=== PATIENT | female | born 1950 | race Caucasian/White ===

== ENCOUNTER 2020-06-04 00:14 | Emergency (ER) | payer OTHER ==
[~2020-06-04] VITALS: Ht 157.5 cm; Wt 68.0 kg
[~2020-06-04 00:14] MED LIST: ALBUTEROL0.63 MG/3 NEB; BROVANA15 MCG/2 M NEB; BUDESONIDE0.5 MG/2 M NEB; BUSPAR 10MG10 MG PO; COZAAR 50MG TAB50 MG PO; COZAAR25 MG PO; DIGOX250 MCG PO; ECOTRIN81 MG PO; ELIQUIS 5 MG TAB5 MG PO; FAMOTIDINE20 MG NG; FLONASE 0.05% N16 GM; FUROSEMIDE40 MG PO; HABITROL 21 MG P1 EA TOP; LASIX20 MG PO; LEVAQUIN500 MG PO; LIPITOR TAB 2020 MG PO; LOPRESSOR 25 MG25 MG PO; MEDROL4 MG PO; MONTELUKAST SOD10 MG PO; NICOTINE PATCH1 EAC2 TOP; NORVASC10 MG PO; OMEPRAZOLE20 MG PO; PAXIL10 MG PO; PLAVIX 75 MG TA75 MG PO; POTASSIUM CHLO20 ME2 PO; PREDNISONE 20 M20 MG PO; PREDNISONE10 MG PO; SPIRIVA HANDIH18 MCG INH; SYMBICORT 160-1 INHA INH; THEO-DUR 300 M300 MG PO; VENTOLIN HFA 66.7 GM INH; ZANAFLEX4 MG PO
[2020-06-04 01:44] LABS: HEMOGLOBIN 14.3 gm/dl (12.3-15.3); RED BLOOD COUNT 4.93 M/UL (4.00-5.10); WHITE BLOOD COUNT 9.2 K/UL (4.5-11.0)
[2020-06-04 02:23] LABS: BUN/CREATININE RATIO 24 (0-10)
[2020-06-04 05:26] LABS: THEOPHYLLINE < 2.0 ug/mL (10.0-20.0)
== END 2020-06-04 16:10 | disposition other institution (70) ==
LOC: ER1 00:14 → CDU 04:18 → ER1 04:18
PROVIDERS: Internal Medicine
DX: J96.22 Acute and chronic respiratory failure with hypercapnia (principal); J44.1 Chronic obstructive pulmonary disease with (acute) exacerbation; G93.40 Encephalopathy, unspecified; I10 Essential (primary) hypertension; F17.200 Nicotine dependence, unspecified, uncomplicated; Z20.822 Contact with and (suspected) exposure to COVID-19; I48.0 Paroxysmal atrial fibrillation; E87.2 Acidosis; I25.10 Atherosclerotic heart disease of native coronary artery without angina pectoris; Z95.5 Presence of coronary angioplasty implant and graft; I11.0 Hypertensive heart disease with heart failure; I50.20 Unspecified systolic (congestive) heart failure; J30.9 Allergic rhinitis, unspecified; F41.9 Anxiety disorder, unspecified; G25.81 Restless legs syndrome; Z91.19 Patient's noncompliance with other medical treatment and regimen; D64.9 Anemia, unspecified; E78.5 Hyperlipidemia, unspecified; K21.9 Gastro-esophageal reflux disease without esophagitis
CPT/HCPCS: 0241U; 31500; 36600; 71045; 80053; 80162; 80198; 81001; 82550; 82553; 82800; 82803; 83605; 84484; 85025; 87040; 93005; 94002; 94640; 94660; 94664; 94760; 96365; 96366; 96368; 96375; 99285; G0480; J0330; J0456; J0696; J2185; J2250; J2920; J3370; J7030; J7070

== ENCOUNTER 2020-08-05 19:26 | Inpatient (IN) | payer OTHER ==
[~2020-08-05] VITALS: Ht 157.5 cm; Wt 72.2 kg
[2020-08-05 21:05] LABS: HEMOGLOBIN 10.7 gm/dl (12.3-15.3); RED BLOOD COUNT 3.78 M/UL (4.00-5.10); WHITE BLOOD COUNT 8.8 K/UL (4.5-11.0)
[2020-08-05 21:13] LABS: BUN/CREATININE RATIO 15 (0-10)
[2020-08-05] MEDS ORDERED: AMIODARONE HCL200 MG PO (21:50)
[2020-08-05] MEDS ORDERED: FUROSEMIDE20 MG PO (21:51)
[2020-08-05] MEDS ORDERED: ATORVASTATIN CA40 MG PO (21:51)
[2020-08-06] MEDS ORDERED: BROVANA15 MCG/2 M INH (10:18)
[2020-08-06] MEDS ORDERED: ASPIRIN81 MG PO (10:19)
[2020-08-06] MEDS ORDERED: IPRAT-ALBUT 0.5-3 ML INH (10:19)
[2020-08-06] MEDS ORDERED: ELIQUIS5 MG PO (10:20)
[2020-08-06] MEDS ORDERED: LOPRESSOR 25 MG25 MG PO (10:20)
[2020-08-06] MEDS ORDERED: BUSPIRONE HCL10 MG PO (10:21)
[2020-08-06] MEDS ORDERED: ATORVASTATIN CA40 MG PO (10:22)
[2020-08-07 04:19] LABS: HEMOGLOBIN 9.8 gm/dl (12.3-15.3); RED BLOOD COUNT 3.5 M/UL (4.00-5.10)
[2020-08-07 04:42] LABS: WHITE BLOOD COUNT 12.7 K/UL (4.5-11.0)
[2020-08-07 17:53] LABS: BORDETELLA PARAPERTUSSIS Not Detected (Not Detectd); BORDETELLA PERTUSSIS Not Detected (Not Detectd); CHLAMYDIA PNEUMONIAE Not Detected (Not Detectd); CORONAVIRUS HKU1 Not Detected (Not Detectd); CORONAVIRUS NL63 Not Detected (Not Detectd); CORONAVIRUS OC43 Not Detected (Not Detectd); CORONOAVIRUS 229E Not Detected (Not Detectd); HUMAN METAPNEUMOVIRUS Not Detected (Not Detectd); HUMAN RHINOVIRUS/ENTEROVIRUS Not Detected (Not Detectd); INFLUENZA A Not Detected (Not Detectd); INFLUENZA B Not Detected (Not Detectd); MYCOPLASMA PNEUMONIAE Not Detected (Not Detectd); PARAINFLUENZA VIRUS 1 Not Detected (Not Detectd); PARAINFLUENZA VIRUS 2 Not Detected (Not Detectd); PARAINFLUENZA VIRUS 3 Not Detected (Not Detectd); PARAINFLUENZA VIRUS 4 Not Detected (Not Detectd); RESPIRATORY SYNCYTIAL VIRUS Not Detected (Not Detectd)
[2020-08-07 19:11] LABS: SARS-CoV-2 NOT DETECTED (Not Detectd)
[2020-08-08 05:47] LABS: BUN/CREATININE RATIO 32 (0-10)
[2020-08-10 03:39] LABS: HEMOGLOBIN 10.5 gm/dl (12.3-15.3); RED BLOOD COUNT 3.77 M/UL (4.00-5.10); WHITE BLOOD COUNT 11.1 K/UL (4.5-11.0)
[2020-08-10 11:14] LABS: ORGANISM ID Not indicated. (.); SPECIMEN SOURCE Urine (.); STREPTOCOCCUS PNEUMONIAE AG Negative (Negative)
== END 2020-08-10 19:30 | disposition home health service (06) | DRG 189 ==
LOC: ER1 19:26 → CDU 21:40 → CCU 21:40 → PROG CARE 08-09 16:01
PROVIDERS: Internal Medicine; Preventive Medicine Occupational Medicine; ADMIT Internal Medicine
DX: J96.21 Acute and chronic respiratory failure with hypoxia (principal); J44.1 Chronic obstructive pulmonary disease with (acute) exacerbation; I50.22 Chronic systolic (congestive) heart failure; I48.20 Chronic atrial fibrillation, unspecified; E44.0 Moderate protein-calorie malnutrition; J96.22 Acute and chronic respiratory failure with hypercapnia; I11.0 Hypertensive heart disease with heart failure; Z20.822 Contact with and (suspected) exposure to COVID-19; I25.10 Atherosclerotic heart disease of native coronary artery without angina pectoris; I11.9 Hypertensive heart disease without heart failure; F41.9 Anxiety disorder, unspecified; F32.9 Major depressive disorder, single episode, unspecified; D53.9 Nutritional anemia, unspecified; E78.5 Hyperlipidemia, unspecified; K21.9 Gastro-esophageal reflux disease without esophagitis; Z87.891 Personal history of nicotine dependence; Z99.81 Dependence on supplemental oxygen; Z91.14 Patient's other noncompliance with medication regimen; I25.2 Old myocardial infarction; Z90.49 Acquired absence of other specified parts of digestive tract; Z98.51 Tubal ligation status; Z82.49 Family history of ischemic heart disease and other diseases of the circulatory system; Z68.28 Body mass index [BMI] 28.0-28.9, adult
CPT/HCPCS: ECHO; 0240U; 36415; 36600; 71045; 80048; 80053; 80198; 81001; 82550; 82553; 82803; 83690; 83874; 83880; 84484; 85025; 85652; 86140; 86738; 87040; 87070; 87081; 87086; 87205; 87278; 87633; 87899; 93005; 93306; 94640; 94660; 94760; 96374; 96375; 99285; C9113; J0456; J0696; J1100; J2920; J7030; J7050

== ENCOUNTER 2020-12-11 14:46 | Inpatient (IN) | payer OTHER ==
[~2020-12-11] VITALS: Ht 162.6 cm; Wt 78.0 kg
[~2020-12-11 14:46] MED LIST changes: +AMIODARONE HCL200 MG PO; +AMOXICILLIN500 MG PO; +ATORVASTATIN CA40 MG PO; +BROVANA15 MCG/2 M INH; +BUSPIRONE HCL10 MG PO; +ELIQUIS5 MG PO; +FUROSEMIDE20 MG PO; +PREDNISONE10 M1 PO
[2020-12-11 15:20] LABS: RED BLOOD COUNT 4.28 M/UL (4.00-5.10); WHITE BLOOD COUNT 16.1 K/UL (4.5-11.0)
[2020-12-11 15:38] LABS: BUN/CREATININE RATIO 28 (0-10)
[2020-12-12 04:50] LABS: RED BLOOD COUNT 3.94 M/UL (4.00-5.10); WHITE BLOOD COUNT 9.1 K/UL (4.5-11.0)
[2020-12-12] MEDS ORDERED: IPRAT-ALBUT 0.5-3 ML INH (10:19)
[2020-12-12] MEDS ORDERED: ASPIRIN EC81 MG PO (10:19)
[2020-12-12] MEDS ORDERED: METOPROLOL SUCC50 MG PO (10:20)
[2020-12-12] MEDS ORDERED: SINGULAIR10 MG PO (12:37)
[2020-12-12] MEDS ORDERED: K-TAB ER10 MEQ PO (12:40)
--- NOTE | 2020-12-12 15:34 | NUR ---
RN SPOKE WITH DR. LOPES ABOUT PATIENT STATUS ORDER. MD STATED THAT HE WAS TOLD THIS WAS THE FIRST TIME PATIENT WAS ON THE BIPAP AND NEEDED TO BE ON PCU. RN NOTIFIED [employer] SCRUBBER OPERATOR WHO INSTRUCTED RN TO HAVE STAFF MEMBER SIT 1:1 UNTIL ROOM WAS AVAILABLE FOR PATIENT ON PCU.
[2020-12-13 04:41] LABS: RED BLOOD COUNT 4.02 M/UL (4.00-5.10); WHITE BLOOD COUNT 9.5 K/UL (4.5-11.0)
[2020-12-13] MEDS ORDERED: MILLIPRED5 MG PO (08:53)
[2020-12-13] MEDS ORDERED: BUDESONIDE0.5 MG/2 M NEB (08:53)
[2020-12-13] MEDS ORDERED: PROTONIX 40 MG40 M1 PO (08:53)
== END 2020-12-13 15:09 | disposition home or self-care (01) | DRG 189 ==
LOC: ER1 14:46 → PROG CARE 21:05 → CDU 21:05 → MED SURG 4 12-12 15:10 → PROG CARE 12-12 16:20
PROVIDERS: Internal Medicine; Student in an Organized Health Care Education/Training Program; ADMIT Internal Medicine
PROC: 5A09457 Assistance with Respiratory Ventilation, 24-96 Consecutive Hours, Continuous Positive Airway Pressure (ICD-10-PCS; principal; 2020-12-11)
DX: J96.21 Acute and chronic respiratory failure with hypoxia (principal); G93.41 Metabolic encephalopathy; E87.2 Acidosis; J44.1 Chronic obstructive pulmonary disease with (acute) exacerbation; N17.9 Acute kidney failure, unspecified; Z20.822 Contact with and (suspected) exposure to COVID-19; F32.9 Major depressive disorder, single episode, unspecified; I10 Essential (primary) hypertension; I25.10 Atherosclerotic heart disease of native coronary artery without angina pectoris; F41.9 Anxiety disorder, unspecified; D64.9 Anemia, unspecified; K21.9 Gastro-esophageal reflux disease without esophagitis; E78.5 Hyperlipidemia, unspecified; J96.22 Acute and chronic respiratory failure with hypercapnia; I48.91 Unspecified atrial fibrillation; Z79.01 Long term (current) use of anticoagulants; Z79.82 Long term (current) use of aspirin; Z99.81 Dependence on supplemental oxygen; Z91.14 Patient's other noncompliance with medication regimen
CPT/HCPCS: 36415; 36600; 71045; 80053; 82550; 82553; 82728; 82803; 83874; 84484; 85025; 86140; 93005; 94640; 94660; 94664; 94760; 96374; 96375; 99285; J0696; J1650; J1956; J2930; J7030; U0002

== ENCOUNTER 2021-02-08 10:31 | Inpatient (IN) | payer OTHER ==
[~2021-02-08] VITALS: Ht 157.5 cm; Wt 72.6 kg
[~2021-02-08 10:31] MED LIST changes: +ASPIRIN EC81 MG PO; -BUSPIRONE HCL10 MG PO; +BUSPIRONE HCL15 MG PO; +IPRAT-ALBUT 0.5-3 ML INH; +K-TAB ER10 MEQ PO; +METOPROLOL SUCC50 MG PO; +MILLIPRED5 MG PO; +PROTONIX 40 MG40 M1 PO; +SINGULAIR10 MG PO
[2021-02-08 11:07] LABS: HEMOGLOBIN 10.7 gm/dl (12.3-15.3); RED BLOOD COUNT 4.18 M/UL (4.00-5.10)
[2021-02-08 11:31] LABS: BUN/CREATININE RATIO 23 (0-10)
[2021-02-08] MEDS ORDERED: BUDESONIDE0.5 MG/2 M INH (14:18)
[2021-02-08] MEDS ORDERED: PROTONIX40 MG PO (14:24)
[2021-02-09 05:09] LABS: HIV SCREEN 4TH GENERATION WRFX Non Reactive (Non Reactive)
[2021-02-09 07:43] LABS: HEMOGLOBIN 9.8 gm/dl (12.3-15.3); RED BLOOD COUNT 4.07 M/UL (4.00-5.10); WHITE BLOOD COUNT 7.7 K/UL (4.5-11.0)
[2021-02-09 07:55] LABS: BUN/CREATININE RATIO 25 (0-10)
[2021-02-09 08:14] LABS: HBSAG SCREEN Negative (Negative); HEP A AB, IGM Negative (Negative); HEP B CORE AB, IGM Negative (Negative); HEP C VIRUS AB <0.1 (0.0-0.9)
[2021-02-10 06:23] LABS: HEMOGLOBIN 9.6 gm/dl (12.3-15.3); RED BLOOD COUNT 3.81 M/UL (4.00-5.10)
[2021-02-10 06:33] LABS: WHITE BLOOD COUNT 11.6 K/UL (4.5-11.0)
[2021-02-10] MEDS ORDERED: MEDROL DOSEPAK 24 MG PO (12:48)
[2021-02-10] MEDS ORDERED: DOXYCYCLINE HY100 MG PO (12:48)
== END 2021-02-10 16:18 | disposition home or self-care (01) | DRG 193 ==
LOC: ER1 10:31 → CDU 12:34 → MED SURG 4 12:34
PROVIDERS: Emergency Medicine; Physician Assistant Medical; ADMIT Internal Medicine
PROC: 5A09457 Assistance with Respiratory Ventilation, 24-96 Consecutive Hours, Continuous Positive Airway Pressure (ICD-10-PCS; principal; 2021-02-08)
DX: J18.9 Pneumonia, unspecified organism (principal); J96.21 Acute and chronic respiratory failure with hypoxia; Z20.822 Contact with and (suspected) exposure to COVID-19; J96.22 Acute and chronic respiratory failure with hypercapnia; J44.0 Chronic obstructive pulmonary disease with (acute) lower respiratory infection; I50.42 Chronic combined systolic (congestive) and diastolic (congestive) heart failure; J44.1 Chronic obstructive pulmonary disease with (acute) exacerbation; K21.9 Gastro-esophageal reflux disease without esophagitis; I11.0 Hypertensive heart disease with heart failure; F41.9 Anxiety disorder, unspecified; F32.A Depression, unspecified; D64.9 Anemia, unspecified; E78.5 Hyperlipidemia, unspecified; I48.0 Paroxysmal atrial fibrillation; I25.10 Atherosclerotic heart disease of native coronary artery without angina pectoris; Z95.5 Presence of coronary angioplasty implant and graft; Z79.01 Long term (current) use of anticoagulants; Z79.82 Long term (current) use of aspirin; Z98.51 Tubal ligation status; Z88.5 Allergy status to narcotic agent; Z90.710 Acquired absence of both cervix and uterus; Z90.49 Acquired absence of other specified parts of digestive tract
CPT/HCPCS: 36415; 36600; 71045; 80048; 80053; 80074; 82803; 83735; 84484; 85025; 85027; 86140; 87389; 93005; 94640; 94660; 94664; 94760; 96374; 96375; 97162; 99285; J0696; J2930; U0002

== ENCOUNTER 2021-02-26 06:46 | Inpatient (IN) | payer OTHER ==
[~2021-02-26] VITALS: Ht 157.5 cm; Wt 78.1 kg
[~2021-02-26 06:46] MED LIST changes: +BUDESONIDE0.5 MG/2 M INH; +DOXYCYCLINE HY100 MG PO; -IPRAT-ALBUT 0.5-3 ML INH; +MEDROL DOSEPAK 24 MG PO; +PROTONIX40 MG PO
[2021-02-26 07:19] LABS: RED BLOOD COUNT 3.92 M/UL (4.00-5.10); WHITE BLOOD COUNT 7.9 K/UL (4.5-11.0)
[2021-02-26 07:36] LABS: BUN/CREATININE RATIO 13 (0-10)
[2021-02-27 10:45] LABS: HEMOGLOBIN 11.1 gm/dl (12.3-15.3)
[2021-02-27 10:47] LABS: RED BLOOD COUNT 4.35 M/UL (4.00-5.10); WHITE BLOOD COUNT 5.3 K/UL (4.5-11.0)
[2021-02-27 11:18] LABS: BUN/CREATININE RATIO 16 (0-10)
[2021-02-28 06:45] LABS: HEMOGLOBIN 9.9 gm/dl (12.3-15.3); RED BLOOD COUNT 3.94 M/UL (4.00-5.10)
[2021-02-28 07:26] LABS: BUN/CREATININE RATIO 13 (0-10)
--- NOTE | 2021-02-28 09:59 | NUR ---
PATIENT HASN'T A HORVATH CATHETER. SHE HAD AN EXTERNAL CATHETER FOR THE FIRST NIGHT AND DAY SHE WAS HERE. CHARTING WOULD ALOW THE CATHETER TO BE DELETED AND CHARTED PROPERLY. PATIENT IS USING BEDSIDE COMMODE AND VOIDING ON HER OWN WITH ASSISTANCE. WILL CONTINUE TO MONITOR.
[2021-03-03] MEDS ORDERED: ACETAZOLAMIDE250 MG PO (08:58)
[2021-03-03] MEDS ORDERED: ASPIRIN EC81 MG PO (08:58)
[2021-03-09] MEDS ORDERED: IPRAT-ALBUT 0.5-3 ML NEB (10:19)
== END 2021-03-03 15:43 | disposition home health service (06) | DRG 291 ==
LOC: ER1 06:46 → CDU 08:52 → M/S 08:52 → 3 EAST 03-03 14:36
PROVIDERS: Emergency Medicine; Internal Medicine Infectious Disease; Physician Assistant; ADMIT Internal Medicine
DX: I11.0 Hypertensive heart disease with heart failure (principal); I50.33 Acute on chronic diastolic (congestive) heart failure; J96.21 Acute and chronic respiratory failure with hypoxia; J96.22 Acute and chronic respiratory failure with hypercapnia; I48.0 Paroxysmal atrial fibrillation; I25.10 Atherosclerotic heart disease of native coronary artery without angina pectoris; Z20.822 Contact with and (suspected) exposure to COVID-19; Z66 Do not resuscitate; J44.9 Chronic obstructive pulmonary disease, unspecified; F41.9 Anxiety disorder, unspecified; E78.5 Hyperlipidemia, unspecified; D64.9 Anemia, unspecified; E66.01 Morbid (severe) obesity due to excess calories; F17.210 Nicotine dependence, cigarettes, uncomplicated; K21.9 Gastro-esophageal reflux disease without esophagitis; F32.A Depression, unspecified; Z98.51 Tubal ligation status; Z95.1 Presence of aortocoronary bypass graft; Z79.1 Long term (current) use of non-steroidal anti-inflammatories (NSAID); Z90.89 Acquired absence of other organs; Z95.5 Presence of coronary angioplasty implant and graft; Z79.01 Long term (current) use of anticoagulants; Z98.890 Other specified postprocedural states; Z82.49 Family history of ischemic heart disease and other diseases of the circulatory system; Z80.8 Family history of malignant neoplasm of other organs or systems; Z68.36 Body mass index [BMI] 36.0-36.9, adult; Z79.82 Long term (current) use of aspirin
CPT/HCPCS: 36415; 71045; 71046; 80048; 80053; 82550; 82553; 83874; 83880; 84484; 85025; 86140; 93005; 94640; 94664; 94760; 96374; 97116; 97116-GP-CQ; 97161; 97165; 97530-GP-CQ; 97535; 99285; J1120; J1940; U0002

== ENCOUNTER 2021-03-09 11:58 | Inpatient (IN) | payer OTHER ==
[~2021-03-09] VITALS: Ht 157.5 cm; Wt 80.3 kg
[~2021-03-09 11:58] MED LIST changes: +ACETAZOLAMIDE250 MG PO; +IPRAT-ALBUT 0.5-3 ML NEB
[2021-03-09 13:10] LABS: HEMOGLOBIN 11.7 gm/dl (12.3-15.3); RED BLOOD COUNT 4.59 M/UL (4.00-5.10); WHITE BLOOD COUNT 6.4 K/UL (4.5-11.0)
[2021-03-10 02:39] LABS: HEMOGLOBIN 10.4 gm/dl (12.3-15.3)
[2021-03-10 02:40] LABS: RED BLOOD COUNT 4.11 M/UL (4.00-5.10); WHITE BLOOD COUNT 8.9 K/UL (4.5-11.0)
--- NOTE | 2021-03-10 02:53 | NUR ---
Patient experiencing urinary retention. 382 ml noted via bladder scanner. notified. New orders to straight cath patient.
--- NOTE | 2021-03-10 02:53 | NUR ---
Straight cathed patient at this time. 350 ml urine output. WCTM
[2021-03-10 02:58] LABS: BUN/CREATININE RATIO 29 (0-10)
--- NOTE | 2021-03-10 17:02 | NUR ---
SPOKE WITH PT'S SON - MEHREEN. EXPLAINED PT'S CONDITION AND PROGNOSIS WITH SON. SON IS AWARE OF PT'S DECLINE. STATES IT IS HARDER TO CARE FOR HER AT HOME BUT HAS RESERVATIONS ABOUT NSG HOME PLACEMENT. STATES PT IS UNABLE TO CARE FOR HERSELF OR EVEN GET OOB AT TIMES. SON WORKS 70HRS PER WEEK AND HAS HELP FROM HIS DAUGHTER RODNEY. EXPLAINED OPTION OF HOSPICE AND NSG HOME TO HIM. HE STATES HE WILL TALK TO HIS DAUGHTER, WHO IS PRIMARY CAREGIVER, AND WILL LET US KNOW WHAT THEY DECIDE. HE REQUEST CASE MANAGEMENT CALL HIM BEFORE 10AM R/T WORK SCHEDULE. STATES HIS DAUGHTER RODNEY CAN BE CALLED AT [phone].
[2021-03-11 02:56] LABS: HEMOGLOBIN 10.2 gm/dl (12.3-15.3); RED BLOOD COUNT 4.16 M/UL (4.00-5.10)
[2021-03-11 02:59] LABS: WHITE BLOOD COUNT 6.6 K/UL (4.5-11.0)
[2021-03-11] MEDS ORDERED: FUROSEMIDE20 MG PO (09:56)
== END 2021-03-11 14:19 | disposition home health service (06) | DRG 291 ==
LOC: ER1 11:58 → CDU 14:22 → PROG CARE 17:47
PROVIDERS: Physician Assistant Medical; ADMIT Internal Medicine
PROC: 5A09457 Assistance with Respiratory Ventilation, 24-96 Consecutive Hours, Continuous Positive Airway Pressure (ICD-10-PCS; principal; 2021-03-09)
DX: I13.0 Hypertensive heart and chronic kidney disease with heart failure and stage 1 through stage 4 chronic kidney disease, or unspecified chronic kidney disease (principal); J96.21 Acute and chronic respiratory failure with hypoxia; Z20.822 Contact with and (suspected) exposure to COVID-19; J96.22 Acute and chronic respiratory failure with hypercapnia; I50.33 Acute on chronic diastolic (congestive) heart failure; G93.40 Encephalopathy, unspecified; Z66 Do not resuscitate; I25.10 Atherosclerotic heart disease of native coronary artery without angina pectoris; F41.9 Anxiety disorder, unspecified; I48.0 Paroxysmal atrial fibrillation; K21.9 Gastro-esophageal reflux disease without esophagitis; D63.1 Anemia in chronic kidney disease; F32.A Depression, unspecified; G25.81 Restless legs syndrome; E78.5 Hyperlipidemia, unspecified; N18.9 Chronic kidney disease, unspecified; F17.210 Nicotine dependence, cigarettes, uncomplicated; J44.9 Chronic obstructive pulmonary disease, unspecified; I27.20 Pulmonary hypertension, unspecified; E66.01 Morbid (severe) obesity due to excess calories; Z91.14 Patient's other noncompliance with medication regimen; Z79.01 Long term (current) use of anticoagulants; Z79.82 Long term (current) use of aspirin; Z95.5 Presence of coronary angioplasty implant and graft; Z98.51 Tubal ligation status; Z90.49 Acquired absence of other specified parts of digestive tract; Z82.49 Family history of ischemic heart disease and other diseases of the circulatory system; Z85.9 Personal history of malignant neoplasm, unspecified; Z68.25 Body mass index [BMI] 25.0-25.9, adult
CPT/HCPCS: 36415; 36600; 70450; 71045; 80048; 80053; 82550; 82553; 82803; 83605; 83735; 83874; 83880; 84484; 85025; 85027; 86140; 87040; 93005; 94640; 94660; 94664; 94760; 96372; 96374; 99285; J1120; J1630; J1940; J2060; U0002

== ENCOUNTER 2021-05-04 12:33 | Inpatient (IN) | payer OTHER ==
[~2021-05-04] VITALS: Ht 157.5 cm; Wt 76.0 kg
[2021-05-04 13:32] LABS: RED BLOOD COUNT 4.23 M/UL (4.00-5.10); WHITE BLOOD COUNT 7.7 K/UL (4.5-11.0)
[2021-05-04 13:55] LABS: BORDETELLA PARAPERTUSSIS Not Detected (Not Detectd); BORDETELLA PERTUSSIS Not Detected (Not Detectd); CHLAMYDIA PNEUMONIAE Not Detected (Not Detectd); CORONAVIRUS HKU1 Not Detected (Not Detectd); CORONAVIRUS NL63 Not Detected (Not Detectd); CORONAVIRUS OC43 Not Detected (Not Detectd); CORONOAVIRUS 229E Not Detected (Not Detectd); HUMAN METAPNEUMOVIRUS Not Detected (Not Detectd); HUMAN RHINOVIRUS/ENTEROVIRUS Not Detected (Not Detectd); INFLUENZA A Not Detected (Not Detectd); INFLUENZA B Not Detected (Not Detectd); MYCOPLASMA PNEUMONIAE Not Detected (Not Detectd); PARAINFLUENZA VIRUS 1 Not Detected (Not Detectd); PARAINFLUENZA VIRUS 2 Not Detected (Not Detectd); PARAINFLUENZA VIRUS 3 Not Detected (Not Detectd); PARAINFLUENZA VIRUS 4 Not Detected (Not Detectd); RESPIRATORY SYNCYTIAL VIRUS Not Detected (Not Detectd)
[2021-05-04 14:16] LABS: BUN/CREATININE RATIO 32 (0-10)
[2021-05-04 14:53] LABS: SARS-CoV-2 NOT DETECTED (Not Detectd)
[2021-05-05 05:54] LABS: HEMOGLOBIN 9.9 gm/dl (12.3-15.3); RED BLOOD COUNT 3.91 M/UL (4.00-5.10); WHITE BLOOD COUNT 6.2 K/UL (4.5-11.0)
[2021-05-05 06:10] LABS: BUN/CREATININE RATIO 28 (0-10)
[2021-05-05] MEDS ORDERED: ASPIRIN EC81 MG PO (12:34)
[2021-05-06 06:01] LABS: HEMOGLOBIN 10.2 gm/dl (12.3-15.3); RED BLOOD COUNT 4.05 M/UL (4.00-5.10)
[2021-05-06 06:09] LABS: WHITE BLOOD COUNT 14.7 K/UL (4.5-11.0)
[2021-05-06 06:56] LABS: BUN/CREATININE RATIO 27 (0-10)
--- NOTE | 2021-05-06 16:21 | NUR ---
CALLED REPORT @[id number] ANGUS WAS BUSY IN ANOTHER PTS ROOM AND COULDNT TAKE REPORT AT THIS TIME. I TOLD HER TO CALL ME BACK CAL FOR REPORT.
--- NOTE | 2021-05-06 17:52 | NUR ---
PATIENT ARRIVES FROM ICU AT 1650. RN AGREES WITH PREVIOUS ICU NURSE ASSESSMENT
[2021-05-07 04:14] LABS: HEMOGLOBIN 9.3 gm/dl (12.3-15.3); RED BLOOD COUNT 3.72 M/UL (4.00-5.10)
[2021-05-07 04:20] LABS: WHITE BLOOD COUNT 10.5 K/UL (4.5-11.0)
[2021-05-08 04:10] LABS: HEMOGLOBIN 9.8 gm/dl (12.3-15.3); RED BLOOD COUNT 3.89 M/UL (4.00-5.10); WHITE BLOOD COUNT 8.3 K/UL (4.5-11.0)
--- NOTE | 2021-05-08 15:43 | NUR ---
05/08/21 1540 DAUGHTER NOTIFIED OF PATIENT TRANSFER TO [facility]
[2021-05-09 07:16] LABS: HEMOGLOBIN 9.8 gm/dl (12.3-15.3); RED BLOOD COUNT 3.97 M/UL (4.00-5.10); WHITE BLOOD COUNT 8.6 K/UL (4.5-11.0)
[2021-05-09] MEDS ORDERED: BUDESONIDE0.5 MG/2 M NEB (08:47)
[2021-05-09] MEDS ORDERED: BROVANA15 MCG/2 M NEB (08:47)
[2021-05-09] MEDS ORDERED: MEDROL DOSEPAK 24 MG PO (08:47)
[2021-05-09] MEDS ORDERED: DIAMOX 250 MG250 MG PO (08:47)
[2021-05-09] MEDS ORDERED: PROAIR DIGIHAL90 MCG INH (08:47)
== END 2021-05-09 11:36 | disposition home or self-care (01) | DRG 189 ==
LOC: ER1 12:33 → MED SURG 4 14:59 → CDU 14:59 → CCU 05-05 00:30 → PROG CARE 05-06 17:24 → MED SURG 4 05-08 15:48
PROVIDERS: Preventive Medicine Occupational Medicine; ADMIT Internal Medicine
PROC: 5A09457 Assistance with Respiratory Ventilation, 24-96 Consecutive Hours, Continuous Positive Airway Pressure (ICD-10-PCS; principal; 2021-05-04)
DX: J96.21 Acute and chronic respiratory failure with hypoxia (principal); G93.41 Metabolic encephalopathy; E87.2 Acidosis; Z20.822 Contact with and (suspected) exposure to COVID-19; I50.32 Chronic diastolic (congestive) heart failure; E87.3 Alkalosis; I11.0 Hypertensive heart disease with heart failure; E78.5 Hyperlipidemia, unspecified; K21.9 Gastro-esophageal reflux disease without esophagitis; G25.81 Restless legs syndrome; F32.A Depression, unspecified; J96.22 Acute and chronic respiratory failure with hypercapnia; F41.9 Anxiety disorder, unspecified; F17.210 Nicotine dependence, cigarettes, uncomplicated; I25.10 Atherosclerotic heart disease of native coronary artery without angina pectoris; J44.9 Chronic obstructive pulmonary disease, unspecified; I27.20 Pulmonary hypertension, unspecified; I48.0 Paroxysmal atrial fibrillation; Z79.01 Long term (current) use of anticoagulants; Z95.5 Presence of coronary angioplasty implant and graft; Z79.82 Long term (current) use of aspirin; Z98.51 Tubal ligation status; Z90.49 Acquired absence of other specified parts of digestive tract; Z88.5 Allergy status to narcotic agent
CPT/HCPCS: 36415; 36600; 70450; 71045; 80048; 80053; 80307; 81001; 82140; 82550; 82553; 82803; 83036; 83605; 83735; 83874; 83880; 84484; 85025; 85610; 85652; 86140; 87633; 93005; 94640; 94660; 94664; 94760; 96374; 96375; 96376; 97161; 97166; 99285; G0480; J0456; J0696; J1120; J2060; J2920; J2930; J3475; J7030

== ENCOUNTER 2021-10-24 14:16 | Inpatient (IN) | payer OTHER ==
[~2021-10-24] VITALS: Ht 157.5 cm; Wt 80.0 kg
[~2021-10-24 14:16] MED LIST changes: +DIAMOX 250 MG250 MG PO; +PROAIR DIGIHAL90 MCG INH
[2021-10-24 15:19] LABS: HEMOGLOBIN 10.9 gm/dl (12.3-15.3); RED BLOOD COUNT 4.45 M/UL (4.00-5.10); WHITE BLOOD COUNT 5.9 K/UL (4.5-11.0)
[2021-10-25 04:03] LABS: BORDETELLA PARAPERTUSSIS Not Detected (Not Detectd); BORDETELLA PERTUSSIS Not Detected (Not Detectd); CHLAMYDIA PNEUMONIAE Not Detected (Not Detectd); CORONAVIRUS HKU1 Not Detected (Not Detectd); CORONAVIRUS NL63 Not Detected (Not Detectd); CORONAVIRUS OC43 Not Detected (Not Detectd); CORONOAVIRUS 229E Not Detected (Not Detectd); HUMAN METAPNEUMOVIRUS Not Detected (Not Detectd); HUMAN RHINOVIRUS/ENTEROVIRUS Not Detected (Not Detectd); INFLUENZA A Not Detected (Not Detectd); INFLUENZA B Not Detected (Not Detectd); MYCOPLASMA PNEUMONIAE Not Detected (Not Detectd); PARAINFLUENZA VIRUS 1 Not Detected (Not Detectd); PARAINFLUENZA VIRUS 2 Not Detected (Not Detectd); PARAINFLUENZA VIRUS 3 Not Detected (Not Detectd); PARAINFLUENZA VIRUS 4 Not Detected (Not Detectd); RESPIRATORY SYNCYTIAL VIRUS Not Detected (Not Detectd)
[2021-10-25 04:06] LABS: HEMOGLOBIN 10.6 gm/dl (12.3-15.3); RED BLOOD COUNT 4.4 M/UL (4.00-5.10); WHITE BLOOD COUNT 5.2 K/UL (4.5-11.0)
[2021-10-25 04:57] LABS: SARS-CoV-2 NOT DETECTED (Not Detectd)
[2021-10-25] MEDS ORDERED: BROVANA15 MCG/2 M INH (09:42)
[2021-10-25] MEDS ORDERED: PROVENTIL HFA6.7 GM INH (09:42)
[2021-10-25] MEDS ORDERED: BUDESONIDE0.5 MG/2 M INH (09:43)
[2021-10-25] MEDS ORDERED: FUROSEMIDE20 MG PO (09:44)
[2021-10-25] MEDS ORDERED: POTASSIUM CHLO10 ME1 PO (09:46)
--- NOTE | 2021-10-27 14:24 | NUR ---
PT ROOM AIR SATURATION IS 87%
[2021-10-28] MEDS ORDERED: DOXYCYCLINE HY100 M2 PO (09:49)
[2021-10-28] MEDS ORDERED: LOPRESSOR 25 MG25 MG PO (09:49)
[2021-10-28] MEDS ORDERED: DIAMOX 250 MG250 MG PO ×2 (09:49→10:18)
[2021-10-28] MEDS ORDERED: MEDROL DOSEPAK 24 MG PO (09:49)
[2021-10-28] MEDS ORDERED: OMNICEF 300 MG300 MG PO (09:49)
[2021-10-28] MEDS ORDERED: TRELEGY ELLIPT1 EACH INH (11:18)
[2021-10-28] MEDS ORDERED: LIDOCAINE PAIN1 EACH TP (11:18)
== END 2021-10-28 12:50 | disposition home or self-care (01) | DRG 189 ==
LOC: ER1 14:16 → CDU 18:15 → PROG CARE 18:15 → CCU 21:45 → PROG CARE 10-25 10:57
PROVIDERS: Student in an Organized Health Care Education/Training Program; ADMIT Internal Medicine
PROC: 5A09457 Assistance with Respiratory Ventilation, 24-96 Consecutive Hours, Continuous Positive Airway Pressure (ICD-10-PCS; principal; 2021-10-24)
PROC: 5A09357 Assistance with Respiratory Ventilation, Less than 24 Consecutive Hours, Continuous Positive Airway Pressure (ICD-10-PCS; 2021-10-26)
PROC: 5A09357 Assistance with Respiratory Ventilation, Less than 24 Consecutive Hours, Continuous Positive Airway Pressure (ICD-10-PCS; 2021-10-27)
PROC: 5A09357 Assistance with Respiratory Ventilation, Less than 24 Consecutive Hours, Continuous Positive Airway Pressure (ICD-10-PCS; 2021-10-28)
DX: J96.21 Acute and chronic respiratory failure with hypoxia (principal); J44.1 Chronic obstructive pulmonary disease with (acute) exacerbation; I47.1 Supraventricular tachycardia; Z66 Do not resuscitate; Z20.822 Contact with and (suspected) exposure to COVID-19; I50.32 Chronic diastolic (congestive) heart failure; I13.0 Hypertensive heart and chronic kidney disease with heart failure and stage 1 through stage 4 chronic kidney disease, or unspecified chronic kidney disease; E87.3 Alkalosis; J96.22 Acute and chronic respiratory failure with hypercapnia; E78.5 Hyperlipidemia, unspecified; D63.1 Anemia in chronic kidney disease; I48.0 Paroxysmal atrial fibrillation; F41.9 Anxiety disorder, unspecified; F32.A Depression, unspecified; N18.30 Chronic kidney disease, stage 3 unspecified; I25.10 Atherosclerotic heart disease of native coronary artery without angina pectoris; Z95.5 Presence of coronary angioplasty implant and graft; Z87.891 Personal history of nicotine dependence; Z79.01 Long term (current) use of anticoagulants; Z79.82 Long term (current) use of aspirin; Z90.49 Acquired absence of other specified parts of digestive tract; Z98.51 Tubal ligation status; Z88.8 Allergy status to other drugs, medicaments and biological substances; Z82.49 Family history of ischemic heart disease and other diseases of the circulatory system
CPT/HCPCS: 36415; 36600; 71045; 80048; 80053; 82550; 82553; 82565; 82803; 83735; 83880; 84484; 85025; 85027; 87633; 93005; 94640; 94660; 94760; 96374; 96375; 97110-GP-CQ; 97116-GP-CQ; 97162; 97530; 99285; J0696; J1120; J1940; J2920; J2930; U0002